=== PATIENT | male | born 1970 | race Caucasian/White ===

== ENCOUNTER 2017-03-17 14:03 | Emergency (ER) | payer OTHER ==
[~2017-03-17 14:03] MED LIST: BACLOFEN10 MG PO; COUMADIN5 MG PO; FEOSOL325 MG PO; LOVENOX40 MG/0.4 SQ; MOBIC15 MG PO; NEURONTIN600 MG PO; ONCE DAILY1 EACH PO; POLYETHYLENE GL17 GM PO; ROXICODONE15 MG PO; SYNTHROID88 MCG PO; VITAMIN C500 M1 PO
== END 2017-03-17 14:35 | disposition home or self-care (01) ==
LOC: ER 14:03
DX: R21 Rash and other nonspecific skin eruption (principal); F17.210 Nicotine dependence, cigarettes, uncomplicated; Z79.01 Long term (current) use of anticoagulants; Z79.899 Other long term (current) drug therapy; Z88.0 Allergy status to penicillin

== ENCOUNTER 2017-03-26 00:10 | Emergency (ER) | payer OTHER | END 2017-03-26 02:50 | disposition home or self-care (01) | LOC: ER 00:10 | DX: R11.2 Nausea with vomiting, unspecified (principal); R19.7 Diarrhea, unspecified; R10.9 Unspecified abdominal pain | CPT/HCPCS: 36415; 96372; J1100 ==